=== PATIENT | male | born 1945 | race Caucasian/White ===

== ENCOUNTER → 2018-10-12 | Outpatient (CLI) | payer OTHER ==
--- NOTE | 2018-10-12 10:29 | 2DMMODE ---
Formerly [facility] [place] [address] 2 D/M-MODE ECHOCARDIOGRAM Name: TINY BARAKAT Room #: REG [facility]#: [id number] Admission: 10/12/18 Attend Phys: Shyam Chinchilla MD Discharge: Date of : 49 Date of Service: 10/12/18 1029 Report #: [id number] THIS REPORT FOR: //name// APPROVED REPORT Study performed: 10/12/2018 09:21:44 EXAM: Comprehensive 2D, Doppler, and color-flow Echocardiogram Patient Location: Out-Patient Status: routine BSA: 2.01 HR: 87 bpm BP: 128/78 mmHg Rhythm: Pacemaker Other Information Study Quality: Adequate Indications Hx: CABG, pacemaker/defib, HTN, HLP. 2D Dimensions RVDd: 39.20 mm IVSd: 11.25 (7-11mm) LVOT Diam: 23.63 (18-24mm) LVDd: 47.17 mm PWd: 10.19 (7-11mm) LVDs: 42.48 (25-40mm) Aortic Root: 39.35 mm Volumes Left Atrial Volume (Systole) Single Plane 4CH: 45.09 mL Single Plane 2CH: 53.94 mL LA ESV Index: 28.00 mL/m2 Aortic Valve AoV Peak Arcadio.: 1.00 m/s AO Peak Gr.: 4.01 mmHg LVOT Max P.00 mmHg LVOT Max V: 0.71 m/s JOSE Vmax: 3.10 cm2 Mitral Valve E/A Ratio: 0.6 MV Decel. Time: 160.66 ms MV E Max Arcadio.: 0.46 m/s Formerly [facility] [address] [place] [address] 2 D/M-MODE ECHOCARDIOGRAM Name: TINY BARAKAT Alexander Room #: REG [facility]#: [id number] Admission: 10/12/18 Attend Phys: Shyam Chinchilla MD Discharge: Date of : 49 Date of Service: 10/12/18 1029 Report #: [id number] MV A Arcadio.: 0.76 m/s MV PHT: 46.59 ms IVRT: 119.95 ms Pulmonary Valve PV Peak Arcadio.: 1.58 m/s PV Peak Gr.: 9.92 mmHg Tricuspid Valve RAP Estimate: 5.00 mmHg Left Ventricle The left ventricle is normal size. Paradoxical septal motion consistent with conduction abnormality. There is normal left ventricular wall thickness. Left ventricular systolic function is moderately decreased. LVEF is 35-40%. Mild diastolic dysfunction is present (impaired relaxation pattern). Right Ventricle The right ventricle is normal size. The right ventricular systolic function is normal. Atria The left atrium size is normal. The right atrium size is normal. Aortic Valve The aortic valve is normal in structure. No aortic regurgitation is present. There is no aortic valvular stenosis. Mitral Valve The mitral valve is normal in structure. Mild mitral regurgitation. Tricuspid Valve The tricuspid valve is normal in structure. There is no tricuspid valve regurgitation noted. Unable to assess PA pressure. Pulmonic Valve The pulmonary valve is normal in structure. Mild pulmonic regurgitation. Great Vessels Aortic root is at upper limits of normal to mildly dilated at 3.9cm. Ascending aorta is not well visualized. IVC is normal in size and collapses >50% with inspiration. Formerly [facility] [address] [place] [address] 2 D/M-MODE ECHOCARDIOGRAM Name: TINY BARAKAT Room #: REG [facility]#: [id number] Admission: 10/12/18 Attend Phys: Shyam Chinchilla MD Discharge: Date of : 49 Date of Service: 10/12/18 1029 Report #: [id number] Pericardium There is no pericardial effusion. <Conclusion> The left ventricle is normal size. LVEF is 35-40%. Paradoxical septal motion consistent with conduction abnormality. The right ventricle is normal size. The aortic valve is normal in structure. The mitral valve is normal in structure. Mild mitral regurgitation. The tricuspid valve is normal in structure. There is no tricuspid valve regurgitation noted. Unable to assess PA pressure. The pulmonary valve is normal in structure. Mild pulmonic regurgitation. Aortic root is at upper limits of normal to mildly dilated at 3.9cm. Ascending aorta is not well visualized. There is no pericardial effusion. <ELECTRONICALLY SIGNED> By: Mono Mcqueen MD 10/12/18 1029 1029 1029 Mono Mcqueen MD /INF
== END ==
LOC: CV 09:06
DX: I08.0 Rheumatic disorders of both mitral and aortic valves (principal)